=== PATIENT | female | born 1970 | race Caucasian/White ===

== ENCOUNTER 2023-07-14 14:45 | Outpatient (RCR) | payer OTHER, SELFPAY ==
--- NOTE | 2023-06-07 12:51 | OT.OPOE ---
OT Outpatient Ortho Eval OT Outpatient Ortho Eval* Start: 06/07/23 12:13 Freq: Status: Active Protocol: Document 06/07/23 12:14 LCN (Rec: 06/07/23 12:44 LCN [id number]) E-signed By Dipti Pan, OTR/L, CLT OT OP Ortho Eval Details Complexity Complexity Low Insurance Information Insurance Information [facility] Outpatient History/Precautions Current Condition/Medical Diagnosis Referring Provider Vinay Louis PA-C Treatment Diagnosis Left Wrist sprain with Radial Head fracture Date of Onset 04/25/23 Precautions Lifting Restrictions Other Precautions At last orthopedic visit 05/08- - still in sling, progress to not using ion the next month, still be careful to not lift > coffee cup, avoid resisted push up/down or resisted turns . Has yet to return to yoga. HAs now weaned out of sling, stopped icing, using tubigrip after 7-10 days acute phase. Other Conditions Has yet to establish PCP, moved here in Jan 2023. Medical/Functional History Medical History Reviewed Yes: Pt usually very healthy. Pt lives alone locally, SO in [place]. 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 Was found to have suspected radial head fracture and no fracture of wrist/sprain only via X Ray. Was placed into sling with weightbearing precautions , tubigrip size E issued for edema. Limited to coffee cup lifting only. 05/06/23 Xray completed w and orders for OT issued to support her elbow ROM limitations, ongoing stiffness and pain. Has been able to progres her activity level to limiting gentle grocery /luandry loads with 2 hands, not doing yoga yet. Elbow is still feeling stiff at end ranges Pain Assessment Pain Present Pain Present Pain Reported Location L elbow Description Dull, Achy,Heaviness Intensity 2 Range of Motion and Strength Shoulder Range of Motion and Strength Shoulder Range of Motion and Strength WNL for B SH ROM. Elbow/Forearm Range of Motion and Strength Elbow/Forearm Range of Motion and L Elbow flexion improved to -5 Strength to 125 (of -10 to 135 on R side) Supination to 65 of 90. Pronation WNL. WR EX to 80, FL to 90, RD to 25/25, UD to 40/40. Mild 2/10 pn at radial head during gripping with DAO and 1 /10 pressure same area during 3 pt pinch 1/10. 2/10 pn/ pressure at L radial head area with careful wall based B push up test. Full hand mobility in field manager/ fist, table top and opposition . Edema-- Equal at wrist crease B 15.3. L elbow has springy edema/soft tissue impingement that limits elbow flexion, no longer has bruising, just gritty texture, pocketing at triceps insert, medial and lateral epicondyle areas. 5 cm above elbow crease 29.0 EL crease 26.0 cm and 5 cm below is 23.8 cm. TFCC fovea test (-) MMT held per post fracture status. Hand Pinch/Bankruptcy Attorney Strength Hand Left Bankruptcy Attorney Strength Position 1 (lbs) 54 Bankruptcy Attorney Strength Position 2 (lbs) 38 Lateral Pinch Strength (lbs) 17 Three Point Pinch (lbs) 14 Right Bankruptcy Attorney Strength Position 1 (lbs) 63 Bankruptcy Attorney Strength Position 2 (lbs) 50 Lateral Pinch Strength (lbs) 20 Three Point Pinch (lbs) 16 OT Problems Problems Problems Decreased Strength,Decreased Range of Motion,Pain,Lifting, Gripping,Pinching Problems Comments weightbearing/plank holds, carrying large grocery loads, working toward using bow again . Patient Potential Excellent Assessment Assessment Assessment Edwige is a 52 y/o female who had a fall on outstretched hand with L radial head fracture and wrist sprain. She is still having some edema, end ROM stiffness and would benefit from further OT to help with safe progression back into strengthening for supporting higher level home mgmt and fitness tasks. OTR cautioned pt to continue being careful with resisted rotations in L forearm and weightbearing tasks. Seems to be doing well lifting 0# loads with two hands. Does not have follow up with ortho scheduled at this time. Occupational Therapy Treatment Plan - OP Potential Rehabilitation Potential Excellent Set Goals Goals Set with Patient Yes Goals Goals In 8 weeks, pt will demonstrate:? 1) Decreased pn to <2/10 80% of the time with sustained gripping, carrying groceries, and plank holds/dog dog in yoga. 2) I HEP for stretching, gradual strengthening and self mgmt strategies. 3) improved L field manager strength in DAO to 50# and 3 pt pinch 16# with pain < 1/10. Treatment Plan Treatment Plan Evaluation,Edema Control,Joint Mobilization,Manual Therapy Expected Frequency 1-2x Week Expected Duration 4-6 Weeks Home Program Home Program Home Program Initiated Home Program Specifics Self MLD of edema, SROM stretches of WR EXT/prayer stretch, supination. Recertification Information Recertification Information Initial Certification Date 06/07/23 Recertification Due Date 09/05/23 Provider Signature Shows Agreement With POC & Medical Necessity Physician Comment/Change Comment or Changes Physician NPI Number #
--- NOTE | 2023-07-14 17:41 | OT.OPODN ---
OT Outpatient Ortho Daily Note OT Outpatient Ortho Daily Note* Start: 06/07/23 12:13 Freq: Status: Active Protocol: Document 07/14/23 17:28 SAAR (Rec: 07/14/23 17:41 LCN [id number]) E-signed By Dipti Pan OTR/Elmo, CLT Type of Note Type of Note Type of Note Daily Note,Discharge Note,Note to MD Visit Number 5 Insurance Information Insurance Information [facility] Outpatient History/Precautions Current Condition/Medical Diagnosis Referring Provider Vinay Louis PA-C Treatment Diagnosis Left Wrist sprain with Radial Head fracture Date of Onset 04/25/23 Precautions Lifting Restrictions Other Precautions At last orthopedic visit 05/08- - still in sling, progress to not using ion the next month, still be careful to not lift > coffee cup, avoid resisted push up/down or resisted turns . Has yet to return to yoga. HAs now weaned out of sling, stopped icing, using tubigrip after 7-10 days acute phase. Other Conditions Has yet to establish PCP, moved here in Jan 2023. Medical/Functional History Medical History Reviewed Yes: Pt usually very healthy. Pt lives alone locally, SO in [place]. 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 A little stiff after lots of driving this weekend. Feels confident with push up from knees, upper body HEP and planks from toe level. Did get 1-2/10 l radial head pressure during washroom operator with EL EX. Pain Assessment Pain Present Pain Present Pain Reported Location L elbow Description Dull, Achy,Heaviness Intensity 1 OT OP Daily Ortho Note/Assessment Therapeutic Exercise Therapeutic Exercise Minutes (minutes) 10 Therapeutic Exercise Comments Recheck of home program per prior date, Goal met. GOod with knee based push ups ( min cues to correct form into chin tuck position, avoid craning neck) Manual Therapy Manual Therapy Minutes (minutes) 15 Manual Therapy Comments OTR performs STM of triceps, biceps ( gritty, spongy edema at elbow) and wrist flexor, extensor muscle bulk with LLPS for EL FL, FL and supination. Pt has full return of supination and EL FL, les stiffness after session. Ultrasound Ultrasound Location & Joint Position L elbow open Ultrasound Frequency & Mode 1 MHz Continuous Intensity (w/cm2) 2.0 Ultrasound Comments as needed to support reduction of edema for tissue healing, improved circulation and tissue mobility. Total Occupational Therapy Time Occupational Therapy Minutes 25 Home Program Home Program Home Program Revised,Compliant Home Program Specifics 07/14/23-- full planks and knee based push ups 06/21/23-- green band SH Habd, diagonals, SH ER. 06/16/23-- Green band double strand concentric WR FL, EX, RD and UD, EL FL and EL EX. wall push ups. 06/07/23--Self MLD of edema, SROM stretches of WR EXT/ prayer stretch, supination. Range of Motion and Strength Shoulder Range of Motion and Strength Shoulder Range of Motion and Strength WNL for B SH ROM. Elbow/Forearm Range of Motion and Strength Elbow/Forearm Range of Motion and L Elbow flexion improved to -5 Strength to 125 (of -10 to 135 on R side) Supination to 65 of 90. Pronation WNL. WR EX to 80, FL to 90, RD to 25/25, UD to 40/40. Mild 2/10 pn at radial head during gripping with DAO and 1 /10 pressure same area during 3 pt pinch 1/10. 2/10 pn/ pressure at L radial head area with careful wall based B push up test. Full hand mobility in washroom operator/ fist, table top and opposition . Edema-- Equal at wrist crease B 15.3. L elbow has springy edema/soft tissue impingement that limits elbow flexion, no longer has bruising, just gritty texture, pocketing at triceps insert, medial and lateral epicondyle areas. 5 cm above elbow crease 29.0 EL crease 26.0 cm and 5 cm below is 23.8 cm. TFCC fovea test (-) MMT held per post fracture status. Goniometric Comments Goniometric Comments Goniometric Comments 07/14/23-- Pt has 1-2/10 l radial head pressure during washroom operator with EL EX. MMT of SH FL, ABD, IR/ER at rib side and upper trap, elbow flexion and EX 5/5 for L UE. EL FL to 130 of 130 and +10 hyperextension , 85 degrees supination, good end feel. Improved Landscape Architect to 58# R and 54# L ( in EL FL) and with elbow EX, R is 62# and L is 54# with 1-2/10 pressure during testing, recovers in 5-10 min after. 3 pt pinch is 8# R and 16# L, no pain. GOALS MET. Hand Pinch/Landscape Architect Strength Hand Left Landscape Architect Strength Position 1 (lbs) 54 Landscape Architect Strength Position 2 (lbs) 38 Lateral Pinch Strength (lbs) 17 Three Point Pinch (lbs) 14 Right Landscape Architect Strength Position 1 (lbs) 63 Landscape Architect Strength Position 2 (lbs) 50 Lateral Pinch Strength (lbs) 20 Three Point Pinch (lbs) 16 Comments Comments above from 06/07/23 eval. 07/14/23-- Improved Landscape Architect to 58# R and 54# L ( in EL FL) and with elbow EX, R is 62# and L is 54# with 1-2/10 pressure during testing, recovers in 5- 10 min after. 3 pt pinch is 8 # R and 16# L, no pain. OT Problems Problems Problems Decreased Strength,Decreased Range of Motion,Pain,Lifting, Gripping,Pinching Problems Comments weightbearing/plank holds, carrying large grocery loads, working toward using bow again . Patient Potential Excellent Assessment Assessment Assessment Good tolerance of continued HEP upgrades and LLPS improving EL FL and supination planes. OTR cautions pt keep working on supination SROMKathleen Gibbons is a 52 y/o female who had a fall on outstretched hand with L radial head fracture and wrist sprain. She is still having some edema, end ROM stiffness and would benefit from further OT to help with safe progression back into strengthening for supporting higher level home mgmt and fitness tasks. Occupational Therapy Treatment Plan - OP Potential Rehabilitation Potential Excellent Set Goals Goals Set with Patient Yes Goals Goals In 8 weeks, pt will demonstrate:? 1) Decreased pn to <2/10 80% of the time with sustained gripping, carrying groceries, and plank holds/dog dog in yoga. (MET) 2) I HEP for stretching, gradual strengthening and self mgmt strategies. (MET) 3) improved L washroom operator strength in DAO to 50# and 3 pt pinch 16# with pain < 1/10. (PARTIALLY MET) Treatment Plan Treatment Plan Evaluation,Edema Control,Joint Mobilization,Manual Therapy Expected Frequency 1-2x Week Expected Duration 4-6 Weeks Occupational Therapy Billing Units Treatment Minutes Timed Treatment Minutes 25 Total Treatment Minutes 25 Billing Units Manual Therapy 1 Therapeutic Exercise 1 Discharge Note Discharge Note Discharge Summary 07/14/23-- Pt has 1-2/10 l radial head pressure during washroom operator with EL EX. MMT of SH FL, ABD, IR/ER at rib side and upper trap, elbow flexion and EX 5/5 for L UE. EL FL to 130 of 130 and +10 hyperextension , 85 degrees supination, good end feel. Improved Landscape Architect to 58# R and 54# L ( in EL FL) and with elbow EX, R is 62# and L is 54# with 1-2/10 pressure during testing, recovers in 5-10 min after. 3 pt pinch is 8# R and 16# L, no pain. GOALS MET. Date of First Visit for Therapy 06/07/23 Date of Last Visit for Therapy 07/14/23 Initial Primary Functional Limitations/ Edwige Kathleen fell onto L Concerns outstretched hand while getting out of roller skMyer while in [place] visiting family 04/25/23 and sought care upon return 04/26/23. Was found to have suspected radial head fracture and no fracture of wrist/sprain only via X Ray. Was placed into sling with weightbearing precautions , tubigrip size E issued for edema. Limited to coffee cup lifting only. 05/06/23 Xray completed w and orders for OT issued to support her elbow ROM limitations, ongoing stiffness and pain. Has been able to progres her activity level to limiting gentle grocery /laundry loads with 2 hands, not doing yoga yet. Elbow is still feeling stiff at end ranges Interventions Provided During Treatment Evaluation,Edema Control,Joint Mobilization,Manual Therapy, Ultrasound,Therapeutic Exercise,Self Care/Home Management,Education Recommendations/Reason for Discharge Met All Therapy Goals,Progress Cont w/HEP
== END 2023-07-14 17:56 | disposition home or self-care (01) ==
PROVIDERS: Visit Provider Physician Assistant Surgical
DX: S52.123A Displaced fracture of head of unspecified radius, initial encounter for closed fracture (principal); S63.502A Unspecified sprain of left wrist, initial encounter; Z51.89 Encounter for other specified aftercare
CPT/HCPCS: 97035; 97110; 97140; 97165; 97535; X5282